=== PATIENT | male | born 1940 | race Two or more races ===

== ENCOUNTER → 2025-08-31 | Outpatient (CLI) | payer MEDICARE, MEDICAID, SELFPAY ==
--- NOTE | 2025-08-31 11:00 | XR_ITS ---
EXAMINATION: CT chest without contrast TECHNIQUE: 3.[address] chest images, 2D sagittal and coronal reconstructions 3D reconstructions Date and time: August 31, 2025, 1109 hours INDICATIONS: Nicotine dependence, smoking history 70 years FINDINGS: No thoracic aortic aneurysm dilatation or dissection Pulmonary artery segments are not enlarged Mild calcification left anterior descending coronary artery Mild enlargement cardiac contour 6 mm pulmonary nodule right upper lobe image 80 4 mm pulmonary nodule left upper lobe image 143 No pneumonia or pulmonary edema No visualized liver or splenic lesion No gallstones No pancreatic or adrenal mass Left upper pole 6.6 cm renal cyst Moderate thoracic spondylosis Small sclerotic density subcentimeter T12, T11, T9 IMPRESSION: Pulmonary nodules as above, recommend 6-month follow-up CT chest without contrast Small sclerotic foci in vertebral bodies, consider whole body bone scan follow-up
== END | disposition home or self-care (01) ==
PROVIDERS: PCP Physician Assistant; Referring Provider Physician Assistant; Visit Provider Physician Assistant
DX: M48.8X9 Other specified spondylopathies, site unspecified (principal); F17.200 Nicotine dependence, unspecified, uncomplicated
CPT/HCPCS: 71250

== ENCOUNTER 2025-09-28 12:08 | Emergency (ER) | payer MEDICARE, MEDICAID, SELFPAY ==
[2025-09-28 12:09] VITALS: BMI 25.7
[2025-09-28 13:14] VITALS: BP 128/78; PULSE 60; RESP 18; TEMP 36.9; O2SAT 95
--- NOTE | 2025-09-28 13:18 | XR_ITS ---
EXAMINATION: Right hand 2 views TECHNIQUE: AP lateral right hand 2 views Date and time: September 28, 2025, 1358 hours INDICATIONS: Patient fell today with hand lacerations. FINDINGS: Significant osteopenia Old fracture deformity first metacarpal. No acute fracture. No opaque foreign body IMPRESSION: No acute fracture No foreign body
--- NOTE | 2025-09-28 13:19 | EDNOTE_ITS ---
ED Wound/Laceration-RME/HPI General Chief Complaint: Wound/Laceration Stated Complaint: LAC TO R HAND S/P FALL; NO HEAD TRAUMA Time Seen by Provider: 09/28/25 13:01 Arrival date/time: 09/28/25 12:08 85-year-old male patient came in for evaluation regarding right hand injury. Patient was walking lost balance and fell on his right hand sustaining 3 cm gaping laceration palmar aspect separately mild. No active bleeding noted patient is able to bend and extend fingers without any limitation. Tetanus vaccination is unknown patient denies any head injury neck pain chest pain back pain. Patient is ambulatory. Incident happened few hours prior to ER visit. Related Data Previous Rx's ?Medication ?Instructions ?Recorded ibuprofen 800 mg tablet 800 mg PO Q8H PRN pain #30 t abs 09/28/25 Allergies Allergy/AdvReac Type Severity Reaction Status Date / Time No Known Allergies Allergy Verified 09/28/25 12:13 Review of Systems Review of Systems Narrative Review of Systems: Review of system reviewed and within normal limits except mentioned in HPI ED Exam Narrative Physical exam: VITAL SIGNS: Reviewed. GENERAL APPEARANCE: Alert and interactive, follows commands, no acute distress, HEAD AND FACE: Non-traumatic. ENT: PERRL, pink conjunctivitis, eyelid no trauma, Mucous membrane moist. NECK: Supple, nontender, no nuchal rigidity. CHEST: No tenderness, no crepitus, no paradoxical movement, no retractions. LUNGS: Clear, well ventilated, symmetric, no rales, no wheezing, no ronchi, no stridor, good breath sounds bilaterally. HEART: Regular rate, regular rhythm, no murmur, no gallops. ABDOMEN: Soft, positive bowel sounds, nondistended, no guarding, nontender, no rebound, no masses, RECTAL: Deferred. GENITAL: Deferred. NEUROLOGICAL: Gross motor function intact sensory function intact, Appropriate for age. MUSCULOSKELETAL: low back nontender, full range of motion. EXTREMITIES: +3 cm laceration hand, palmar aspect, full range of motion. SKIN: Color pink, dry, no rash, no lacerations, no abrasions, no contusions. LYMPHATICS: Deferred. Course Quality Measures none Orders Category Date Time Status XR hand RT 2V Stat Exams 09/28/25 13:18 Completed Lidocaine 1% 20 ml [Xylocaine 1% 20 ML] Med 09/28/25 13:18 Discontinued 20 ml INFL X1 ONE TET,DIP/PERT AC (Adult)-Tdap [Boostrix Adult (Tdap) Med 09/28/25 13:18 Discontinued Vacc] 0.5 ml IMI .ONCE ONE Vital Signs Vital signs: Vital Signs Temperature 98.5 F 09/28/25 13:14 Pulse Rate 60 09/28/25 13:14 Respiratory Rate 18 09/28/25 13:14 Blood Pressure 128/78 09/28/25 13:14 Pulse Oximetry (%) 95 09/28/25 13:14 Oxygen Delivery Method Room Air 09/28/25 13:14 PROCEDURES: Laceration Laceration 1: Site: hand Side (If applicable): right Size (cm): 3 Description: linear Depth: simple, single layer Local Anesthetic: lidocaine 1% Amount of anesthesia used (mL): 3 Pre-repair: wound explored, irrigated extensively and deep structures intact Skin layer closed with: nylon Suture size (cm): 4-0 Number of sutures: 6 Technique: simple, interrupted Wound / Laceration MDM Narrative MDM Narrative:: 09/28/25 12:08 85-year-old male patient came in for evaluation regarding right hand injury. Patient was walking lost balance and fell on his right hand sustaining 3 cm gaping laceration palmar aspect separately mild. No active bleeding noted patient is able to bend and extend fingers without any limitation. Tetanus vaccination is unknown patient denies any head injury neck pain chest pain back pain. Patient is ambulatory. Incident happened few hours prior to ER visit. X-ray of the hand came back unremarkable. Repair and suturing was done by me see procedure note. Patient tolerated the procedure well. Was advised to clean the wound daily with bacitracin and to remove the sutures in 10 days return to the emergency room for swelling puslike drainage and redness to the hand. Patient data External records reviewed:: None Clinical information provided by:: patient Social determinants that could affect healthcare access:: none Patient has the following chronic illnesses:: None How is presenting disease/condition affected by chronic disease/condition?: no chronic disease Evaluation data The following diagnostics were reviewed and interpreted by me:: other (specify) (None) Lab and/or radiology exams considered but not ordered:: None Interpretation Summary: None Medications / Prescriptions Medications or Prescriptions considered but not ordered:: None Medication administrations:: Medication Administration History Discontinued Medications Diphtheria/Tetanus/Acell Pertussis (Diphth,Pertuss(Acell),Tet Vac 0.5 Ml Syr- Adult) 0.5 ml IMi .ONCE ONE Stop: 09/28/25 13:19 Last Admin: 09/28/25 14:21 Dose: 0.5 ml Documented By: Lidocaine HCl (Lidocaine Hcl 1% 20 Ml Vial) 20 ml INFL X1 ONE Stop: 09/28/25 13:19 Last Admin: 09/28/25 14:24 Dose: 20 ml Documented By: Boostrix lidocaine Consultations Consultation(s) initiated? (list below): No Diagnosis Wound Differential Diagnosis: laceration, abrasion and avulsion of skin Most likely diagnosis given after review of the tests above:: Hand laceration Admission Indicated Admission indicated?: not indicated Admission Request Was there a request for admission?: No Disposition Plan Disposition Plan: Discharge Discharge Attestation Discharge Attestation: The patient and all family members were given an opportunity to ask questions and understood the discharge instructions. Discharge instructions specifically effects, indications for sooner follow up or return to the emergency department, and the expected course of current diagnosis. Patient condition: Stable Discharge Plan Plan Patient Disposition: HOME (Self Care) Discharge Disposition comment: None Prescriptions/Referrals Prescriptions/Med Rec: New ibuprofen 800 mg tablet 800 mg PO Q8H PRN (Reason: pain) Qty: 30 0RF Referrals: No Primary/Family,Physician [Primary Care Provider] - In 1 week Problem List Clinical Impression: Hand laceration Patient/Caregiver Discharge Instructions Discharge Activity: activity as tolerated Education Materials: ED Laceration, Hand: All Closures Additional Instructions: Thank you for the opportunity for serving you today. You are stable for discharged . You are advised to: Follow-up with your PCP in 1 to 2 days Return to ED for worsening of symptoms Increase oral fluids Take medication as prescribed Daily dressing with bacitracin as needed For removal of sutures in 10 days Print Language: Armenian Stand Alone Forms: Rylee Award Info., Patient Portal Info Letter PA/JULIANA Supervising Physician QUINCY/JULIANA Supervising Physician: MD Van
[2025-09-28] MEDS: DIPHTH,PERTUSS(ACELL),TET VAC 0.5 ML SYR- ADULT IMi (14:21)
[2025-09-28] MEDS: LIDOCAINE HCL 1% 20 ML VIAL INFL (14:24)
== END 2025-09-28 15:44 | disposition home or self-care (01) ==
PROVIDERS: Emergency Provider Family Medicine
DX: S61.411A Laceration without foreign body of right hand, initial encounter (principal); W01.0XXA Fall on same level from slipping, tripping and stumbling without subsequent striking against object, initial encounter; Y93.01 Activity, walking, marching and hiking; Z23 Encounter for immunization
CPT/HCPCS: 12002; 73120; 90471; 90715; 99282; J3490